=== PATIENT | male | born 1970 | race Caucasian/White ===

== ENCOUNTER 2019-10-08 10:28 | Outpatient (CLI) | payer BC, SELFPAY ==
--- NOTE | 2019-10-08 10:54 | ECG_ITS ---
Measurements Intervals [place] Rate: 80 P: 56 OK: 192 QRS: -55 QRSD: 97 T: 36 QT: 379 QTc: 438 Interpretive Statements SINUS RHYTHM WITH SINUS ARRHYTHMIA LEFT AXIS DEVIATION POSSIBLE LEFT ATRIAL ENLARGEMENT INCOMPLETE RIGHT BUNDLE BRANCH BLOCK BORDERLINE ECG Electronically Signed On 10-08-2019 12:15:26 [employer] INSURANCE SPECIALIST by Major Varela D.O.
== END 2019-10-08 10:29 | disposition home or self-care (01) ==
PROVIDERS: PCP Internal Medicine; Visit Provider Internal Medicine
DX: Z00.00 Encounter for general adult medical examination without abnormal findings (principal)
CPT/HCPCS: 93005

== ENCOUNTER 2022-03-24 00:46 | Day surgery (SDC) | payer BC, SELFPAY ==
[2022-03-13 14:55] VITALS: BMI 28.5
--- NOTE | 2022-03-13 15:29 | PC.NURSE ---
Pt instructed during telephone interview to disregard order for Mg Citrate with bowel prep due to recall. Pt states understanding.
[2022-03-24 08:52] VITALS: BMI 27.8
[2022-03-24 08:55] VITALS: BP 115/72; PULSE 95; RESP 18; TEMP 36.4; O2SAT 100
[2022-03-24] MEDS: LACTATED RINGERS 1,000 ML 150 ML IV CONT (09:03)
--- NOTE | 2022-03-24 09:03 | WPDANESEPPF ---
Anes - Initial Pre Proc Eval Procedure: Operation Date: 03/24/22 10:00 Proposed Procedures p Screening Colonoscopy - Mark Toibas MD Date/Time: 03/24/22 09:03 Surgeon: Mark Tobias MD Pre Op Diagnosis: neoplasm screening Patient Data Age: 51 Gender: M Height: 1.8 m Weight: 90.4 kg Last Vital Signs Temp 97.6 F 03/24/22 08:55 Pulse 95 03/24/22 08:55 Resp 18 03/24/22 08:55 BP 115/72 03/24/22 08:55 Pulse Ox 100 03/24/22 08:55 O2 Del Method Room Air 03/24/22 08:55 Allergies Allergy/AdvReac Type Severity Reaction Status Date / Time No Known Allergies Allergy Verified 03/13/22 14:52 Home Medications Medication Instructions Recorded Confirmed Type cholecalciferol (vitamin D3) 125 1 unit PO DAILY 10/06/19 03/13/22 History mcg (5,000 unit) disintegrating tablet fish oil-dha-epa 1,200 mg-144 1 cap PO DAILY 10/06/19 03/13/22 History mg-216 mg capsule loratadine 10 mg tablet (Claritin) 10 mg PO DAILY 10/06/19 03/13/22 History multivitamin 1 tablet PO DAILY 10/08/19 03/13/22 History tadalafil 5 mg tablet (Cialis) 5 mg PO DAILY PRN sexual activity 10/24/21 03/13/22 Rx #90 tabs Patient hx anesthesia problems: none Family hx anesthesia problems: none Results Review: All pre-operative results and documents have been reviewed as part of the pre-operative evaluation. [facility] Family History Family History Mother Diabetes mellitus Patient's mother is in good health Father Family history of throat cancer, Onset Age: 69 Patient's father is Sibling Family history of seizure disorder Social History Social History Smoking status: Never smoker Second hand tobacco smoke exposure: Yes Alcohol intake: never Substance use: never Living arrangements: with family Spiritual care concerns: No Anes - Eval Final PreProcedure Day of Procedure 03/24/22 09:03 Patient weight: normal Heart: regular rate and rhythm Lungs: clear to auscultation Airway: Mallampati scale class II Neurological: alert and oriented Last oral intake: >/= 8 hours ASA classification: II Emergent: no Anesthetic plan: proceed Anesthesia type and monitoring: general GIVS and standard monitoring Results Review: All pre-operative results and documents have been reviewed as part of the pre-operative evaluation. Informed Consent: The patient's anesthetic plan and its attendant risks and benefits were discussed with the patient/family/POA. Questions were solicited and answers provided to the satisfaction of the patient/family/POA.
--- NOTE | 2022-03-24 09:27 | PM.HPGS ---
History of Present Illness History of Present Illness Consent: Risks, benefits, and alternatives have been discussed and questions answered. Patient agrees to proceed with procedure. Chief complaint: neoplasm screening Narrative: Garett Diamond is a 51 year old male here for first screening colonoscopy Review of Systems Constitutional: Constitutional: Denies headache(s) and Denies weakness Eyes: Eyes: Denies blurry vision ENT: Reports Normal hearing present, Denies headache(s) and Denies neck pain Cardiovascular: Cardiovascular: Denies chest pain and Denies dyspnea Respiratory: Respiratory: Denies dyspnea Gastrointestinal: Gastrointestinal: Reports no additional gastrointestinal complaints Genitourinary: Genitourinary: Denies dysuria Musculoskeletal: Musculoskeletal: Denies neck pain Integumentary/Breasts: Skin/Breast: Denies dry skin Neurologic: Reports Normal hearing present, Denies headache(s) and Denies weakness Psychiatric: Psychiatric: Denies anxiety Endocrine: Endocrine: Denies change in body appearance Hematologic/Lymphatic: Hematologic/Lymphatic: Denies easy bleeding Allergic/Immunologic: Allergic/Immunologic: Denies urticaria PMFSH Family History Family History Mother Diabetes mellitus Patient's mother is in good health Father Family history of throat cancer, Onset Age: 69 Patient's father is Sibling Family history of seizure disorder Social History Social History Smoking status: Never smoker Second hand tobacco smoke exposure: Yes Alcohol intake: never Substance use: never Living arrangements: with family Spiritual care concerns: No Meds Home Medications and Allergies Home Medications Medication Instructions Recorded Confirmed Type cholecalciferol (vitamin D3) 125 1 unit PO DAILY 10/06/19 03/13/22 History mcg (5,000 unit) disintegrating tablet fish oil-dha-epa 1,200 mg-144 1 cap PO DAILY 10/06/19 03/13/22 History mg-216 mg capsule loratadine 10 mg tablet (Claritin) 10 mg PO DAILY 10/06/19 03/13/22 History multivitamin 1 tablet PO DAILY 10/08/19 03/13/22 History tadalafil 5 mg tablet (Cialis) 5 mg PO DAILY PRN sexual activity 10/24/21 03/13/22 Rx #90 tabs Allergies Allergy/AdvReac Type Severity Reaction Status Date / Time No Known Allergies Allergy Verified 03/13/22 14:52 Vital Signs Vital Signs - 24 hr 03/24/22 08:55 Temperature 97.6 F Pulse Rate 95 Respiratory Rate 18 Blood Pressure 115/72 Pulse Oximetry 100 Oxygen Delivery Room Air Exam Const: General: comfortable and no acute distress HENMT: General nose exam: Normal nares present Eyes: General: appearance normal, both eyes and all related structures Neck: Neck: no JVD Resp: Auscultation: clear to auscultation bilaterally Cardio: Rate: regular rate Rhythm: regular rhythm GI: Inspection: non-distended GI Palp: Yes Soft to palpation Skin: General skin exam: normal color Neuro: General: gait normal Speech: normal speech Extrem: General: normal to inspection Psych: Mental Status: mental status grossly normal Assessment and Plan Assessment and plan (1) Encounter for screening colonoscopy: Code(s): Z12.11 - Encounter for screening for malignant neoplasm of colon Status: Acute Assessment and Plan: colonoscopy
[2022-03-24 09:50] VITALS: BP 105/65; PULSE 84; RESP 15; O2SAT 96
[2022-03-24 10:00] VITALS: BP 112/74; PULSE 70; RESP 20; O2SAT 100
[2022-03-24 10:10] VITALS: BP 108/76; PULSE 90; RESP 15; O2SAT 100
== END 2022-03-24 10:25 | disposition home or self-care (01) ==
PROVIDERS: PCP Internal Medicine; Visit Provider Internal Medicine Gastroenterology
PROC: 0DJD8ZZ Inspection of Lower Intestinal Tract, Via Natural or Artificial Opening Endoscopic (ICD-10-PCS; CPT 45378; principal; 2022-03-24 10:00)
DX: Z12.11 Encounter for screening for malignant neoplasm of colon (principal); K57.30 Diverticulosis of large intestine without perforation or abscess without bleeding; K64.8 Other hemorrhoids
CPT/HCPCS: 45378; J2704; J7120

== ENCOUNTER 2024-02-28 15:06 | Outpatient (CLI) | payer BC, SELFPAY ==
[2024-02-28 15:43] LABS: Strep Group A RT-PCR NOT DETECTED (Negative)
== END 2024-02-28 15:07 | disposition home or self-care (01) ==
LOC: ANHLAB 15:08
PROVIDERS: PCP Family Medicine; Visit Provider Nurse Practitioner Family
DX: J02.9 Acute pharyngitis, unspecified (principal)
CPT/HCPCS: 87651

== ENCOUNTER 2025-02-17 19:26 | Emergency (ER) | payer BC, SELFPAY ==
--- NOTE | 2025-02-17 19:29 | ED_ITS ---
HPI - Male Genitourinary General Chief complaint: Urogenital-Male Stated complaint: Urinary Problems Time Seen by Provider: 02/17/25 19:32 Source: patient, RN notes reviewed and old records reviewed Mode of arrival: ambulatory Limitations: no limitations History of Present Illness HPI Narrative: 54-year-old male presents to the [facility] with concerns for a bladder infection. Presents with left lower quadrant pain. Patient reports that on Sunday he had a Pereira Ruddy which, multiple bowel movements throughout the day, developed left groin pain. Denies any nausea or vomiting. Denies fevers. Patient reports that his ?temperature felt off. ? Patient denies any actual elevated fevers. Has been taking Tylenol. No treatment today. Reports he has tried calling his primary care provider today was not able to get in until next week. Related Data Home Medications ?Medication ?Instructions ?Recorded ?Confirmed ?Last Taken ?Type cholecalciferol (vitamin D3) 125 1 unit PO DAILY 10/06/19 02/11/25 Unknown History mcg (5,000 unit) disintegrating tablet fish oil-dha-epa 1,200 mg-144 1 cap PO DAILY 10/06/19 02/11/25 Unknown History mg-216 mg capsule loratadine 10 mg tablet (Claritin) 10 mg PO DAILY 10/06/19 02/11/25 Unknown History multivitamin 1 tablet PO DAILY 10/08/19 02/11/25 Unknown History Allergies Allergy/AdvReac Type Severity Reaction Status Date / Time No Known Allergies Allergy Verified 02/17/25 19:27 Review of Systems Review of Systems: All systems reviewed & are unremarkable except as noted in HPI and below Constitutional: Constitutional: Reports no additional constitutional complaints Gastrointestinal: Gastrointestinal: Reports as per HPI, Reports abdominal pain, Reports change in bowel habits (Increased), Denies diarrhea and Denies nausea Genitourinary: Genitourinary: Reports no additional male genitourinary complaints Musculoskeletal: Musculoskeletal: Reports no additional musculoskeletal complaints Integumentary/Breasts: Skin/Breast: Reports system reviewed and no additional complaints, except as docu PMFSH Past Medical History Medical History Vitamin D deficiency Viral upper respiratory tract infection Skin lesion Post-traumatic osteoarthritis of left knee Other male erectile dysfunction Nasal septal deviation Male pattern baldness skilled nursing current use of therapeutic drug Keratosis Hypertriglyceridemia History of snoring Adult general medical exam Abnormal urine finding Unprotected sex High triglycerides IFG (impaired fasting glucose) GERD (gastroesophageal reflux disease) Encounter for screening colonoscopy Olecranon bursitis History of COVID-19 Vaccine counseling Family History Family History Mother Diabetes mellitus Patient's mother is in good health Father Family history of throat cancer, Onset Age: 69 Patient's father is Sibling Family history of seizure disorder Social History Social History Smoking status: Never smoker Second hand tobacco smoke exposure: Yes Alcohol intake: never Substance use: never Lack of Transportation: No Lack of Food: Never True Current Housing: I Have Housing Concerned About Future Housing: No Difficulty Paying Gas/Electric Bills: No Difficulty Paying for Meds: No Currently Unemployed: No Education: Trade/Vocational Certificate Difficulty w/ Childcare or Family Care: No Living arrangements: with family Spiritual care concerns: No Comments At the time of my signature, I reviewed and agree with the nursing past medical, surgical, social, and family history. There is no relevant family history pertinent to the patient complaint. Exam Const: General: cooperative, healthy appearing, comfortable, no acute distress, well developed, alert and well nourished Nutritional Appearance: well nourished Orientation/consciousness: patient oriented x3 Limitations: no limitations HENMT: Head: normal to inspection Eyes: General: appearance normal, both eyes and all related structures Alignment and Position: alignment normal Neck: Neck: normal visual inspection, full ROM, no lymphadenopathy and no meningeal signs Chest: Chest palpation & inspection: normal inspection of the chest Resp: Effort & Inspection: normal respiratory effort and able to speak in complete sentences Cardio: Rate: regular rate GI: GI Palp: Yes abdominal tenderness (Left lower quadrant), Yes Soft to palpation, No Firmness to palpation present (GI), Yes Tenderness to palpation present (GI), No Guarding due to palpation present (GI) and No Hernia present Skin: General skin exam: normal color and no rashes or lesions noted Neuro: General: patient oriented x3, gait normal, moves all extremities and no meningeal signs Cognition (Neuro): normal cognition Speech: normal speech Gait exam (Neuro): Normal gait present Extrem: General: normal to inspection, full ROM, capillary refill normal and normal gait Psych: Appearance: grossly normal and well kempt Mental Status: mental status grossly normal Speech and movement: Normal speech and movement present and Clear speech present Affect: normal affect Attitude: cooperative Course Course Level of Care: Express Care Visit Vital Signs Vital signs: Vital Signs Temperature 98.1 F 02/17/25 19:32 Pulse Rate 91 02/17/25 19:32 Respiratory Rate 20 02/17/25 19:32 Blood Pressure 132/76 02/17/25 19:32 Pulse Oximetry 98 02/17/25 19:32 Oxygen Delivery Room Air 02/17/25 19:32 Temperature 98.1 F 02/17/25 19:32 Pulse Rate 91 02/17/25 19:32 Respiratory Rate 20 02/17/25 19:32 Blood Pressure 132/76 02/17/25 19:32 Pulse Oximetry 98 02/17/25 19:32 Oxygen Delivery Room Air 02/17/25 19:32 Reviewed MDM - Male Genitourinary MDM Narrative Medical decision making narrative: Patient sitting in exam room. Patient is nontoxic, vitals stable. Patient presents stating he has concern for a UTI. Urine is clean, no leukocytes, no nitrites, no blood. On exam patient has left lower quadrant tenderness. Has had since Sunday, 4 days. Reports an increase in bowel movement but were not diarrhea. Through joint decision making discussed going to the ER. Patient states that going to the ER would cost 150 dollars, with rather follow-up with his primary care provider and call her in the morning to try to get an evaluation. Discussed with patient that if the symptoms get worse he develops fevers, nausea, vomiting it is advised that he does go to the emergency room which he verbalized understanding Discharge instructions reviewed with patient, as well as provided in writing per nursing staff. The instructions also include specific and strict return/GO TO THE ER as well as f/u information. All questions have been answered, and the patient deny any further questions with discharge and discharge plan. Some parts of this dictation were generated by voice recognition software and may contain typographical and/or grammatical inaccuracies. Differential Diagnosis Differential diagnosis: Likely urinary tract infection, urethritis, inguinal hernia and other (Diverticulitis, colitis, gastroenteritis) Lab Data Labs: Lab Results 02/17/25 Range/Units 19:35 POC Urine Color Yellow POC Urine Clarity Clear POC Urine pH 6.0 POC Ur Specif [place] 1.025 POC Urine Protein Negative (Negative) POC Ur Glucose (UA) Negative (Negative) POC Urine Ketones Negative (Negative) POC Urine Blood Negative (Negative) POC Urine Nitrite Negative (Negative) POC Urine Bilirubin Negative (Negative) POC Urine Urobilinogen 0.2 POC U Leukocyte Esteras Negative (Negative) Reviewed Critical Care Time Critical Care Time Critical Care Time: No Discharge Plan Discharge Clinical Impression: Abdominal pain, LLQ Patient Disposition: Home Condition: Stable Instructions: Abdominal Pain (ED) Additional Instructions: Urine did not show signs of infection. If the pain continues or get worse please go to the emergency room. Patient Language: Persian Prescriptions: No Action cholecalciferol (vitamin D3) 5,000 unit tablet,disintegrating 1 unit PO DAILY fish oil-dha-epa 1,200-144-216 mg capsule 1 cap PO DAILY loratadine [Claritin] 10 mg tablet 10 mg PO DAILY multivitamin Tablet 1 tablet PO DAILY fluticasone propionate 50 mcg/actuation spray,suspension 2 spray intranasal DAILY Qty: 16 0RF Rx Instructions: administer into each nostril tadalafil [Cialis] 5 mg tablet 5 mg PO DAILY PRN (Reason: sexual activity) Qty: 90 1RF Follow-up/Referrals: My Harrell APRN [Primary Care Provider] - 3 Days ([facility] follow-up) Stand Alone Forms: Work/School Release IP Time of Disposition: 19:43
[2025-02-17 19:32] VITALS: BP 132/76; PULSE 91; RESP 20; TEMP 36.7; O2SAT 98
[2025-02-17 19:41] LABS: EDUAAPPEAR Clear; EDUABILI Negative (Negative); EDUABLOOD Negative (Negative); EDUACOLOR1 Yellow; EDUAGLUCOSE Negative (Negative); EDUAKETONE Negative (Negative); EDUALEUKO Negative (Negative); EDUANITRATE Negative (Negative); EDUAPH 6.0; EDUAPROTEIN Negative (Negative); EDUASPGRAVITY 1.025; EDUAUROBILI 0.2
== END 2025-02-17 19:45 | disposition home or self-care (01) ==
PROVIDERS: Emergency Provider Nurse Practitioner; PCP Nurse Practitioner Family
DX: R10.32 Left lower quadrant pain (principal); E55.9 Vitamin D deficiency, unspecified; K21.9 Gastro-esophageal reflux disease without esophagitis; R73.01 Impaired fasting glucose
CPT/HCPCS: 81003; 99212; G0463

== ENCOUNTER 2025-04-15 15:45 | Outpatient (CLI) | payer BC, SELFPAY ==
--- NOTE | ~2025-04-15 | CT_ITS ---
Garett Dodd [place] EXAMINATION: CT abdomen pelvis w con COMPARISON: None HISTORY: R10.32 - Left lower quadrant pain TECHNIQUE: Axial images were obtained through the abdomen, pelvis post administration of IV contrast. Oral contrast was also administered. Coronal reconstruction images were obtained from the axial views. CT scan performed using dose optimization techniques including the following automated exposure control; adjustment of mA and/or kV; use of iterative reconstruction technique. Automatic exposure control was used to reduce radiation dose. Permanent radiation dose record is archived to PACS. FINDINGS: CT abdomen: LUNG BASES: The lung bases demonstrate chronic changes. LIVER: Mild hepatic steatosis. Portal vein patent. No intrahepatic biliary duct dilatation. SPLEEN: Unremarkable. KIDNEYS: Right Kidney: Unremarkable. No calculi. No hydronephrosis. Left Kidney: Unremarkable. No calculi. No hydronephrosis ADRENAL GLANDS: Unremarkable. PANCREAS: Unremarkable. GALLBLADDER/BILIARY: Unremarkable. No biliary dilatation. STOMACH AND ESOPHAGUS: Visualized stomach and esophagus within normal limits. BOWEL/MESENTERY: Moderate fecal content, no colitis or diverticulitis. Moderate diverticulosis. Appendix normal. Mesentery normal. No dilated small bowel loops. ADENOPATHY/RETROPERITONEUM: No lymphadenopathy. AORTA/VASCULATURE: Normal caliber aorta. FREE FLUID OR FREE AIR: No free fluid.. CT pelvis: SOLID ORGANS/REPRODUCTIVE: The prostate is enlarged with a cystic focus in the right prostate gland measuring 1.5 x 1.6 cm incompletely evaluated, correlate with PSA and prostate ultrasound. BLADDER: Within normal limits. OSSEOUS STRUCTURES: Sequelae of previous trauma noted in the left iliac bone. No sclerotic or lytic lesions. OVERLYING SOFT TISSUES: Unremarkable. IMPRESSION: 1. No etiology to explain the patient's pain. Incidental findings above Reviewed, dictated and finalized at location A.
--- OUTSIDE RECORDS SUMMARY | 2025-04-15 15:58 | XMS_ITS | Clinical Summary ---
Author Organization [facility] Address [address] [place] [address] Care Team Providers Care Child Care Supervisor Name Role Phone Michael Calvin MD Primary Care Provider [phone] Allergies Active Allergy Reactions Criticality Noted Date Comments Naproxen Stomach upset Low 02/09/2021 Medications tadalafiL (CIALIS) 5 mg tablet TAKE 1 TABLET BY MOUTH ONCE DAILY NEEDED FOR SEXUAL ACTIVITY. 03/10/2021 Active Active Problems No known active problems Surgical History Surgery Date Site/Laterality Comments KNEE ARTHROSCOPY Left MMD by Dr. 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 Gender Identity Not on file Sexual Orientation Not on file Occupation Industry Job Start Date Job End Date [employer] Not on file Not on file Not on file Obstetrics History Last Filed Vital Signs Vital Sign Reading Time Taken Comments Blood Pressure 124/77 03/07/2013 6:14 AM CDT Pulse 72 03/07/2013 6:14 AM CDT Temperature 36.2 C (97.1 F) 03/07/2013 6:14 AM CDT Respiratory Rate - - Oxygen Saturation 97% 03/07/2013 6:14 AM CDT Inhaled Oxygen Concentration - - Weight 90.7 kg (200 lb) 04/27/2021 7:27 AM CDT Height 180.3 cm (5' 11) 04/27/2021 7:27 AM CDT Body Mass Index 27.89 04/27/2021 7:27 AM CDT Plan of Treatment Not on file Insurance [employer] Care Teams Child Care Supervisor Relationship Specialty Start Date End Date Michael Calvin MD PCP - General Internal Medicine 02/04/21
--- OUTSIDE RECORDS SUMMARY | 2025-04-15 15:58 | XMS_ITS | Clinical Summary ---
Author Organization [email or web address] Address [address] [place] [address] Care Team Providers Care Manager Talent Acquisition Name Role Phone Unavailable Primary Care Provider Unavailabl e Source Comments [email or web address],non-owned Affiliates and Associated Physician Practices is amultiple site organization consisting of ambulatory clinics and hospital sitesin [place], [place], [place] and [place]. This disclosure is being madepursuant to the Care Everywhere program and may not contain all information available regarding this patient. 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 Gender Identity Not on file Sexual Orientation Not on file Plan of Treatment Health Maintenance Due Date Last Done Comments COLOGUARD (AGES 45-75) - COL ON CA SCREENING 1971 COLON MONITORING 1971 COLONOSCOPY - COLON CA SCREENING 1971 CT COLONOGRAPHY - COLON CA SCREENING 1971 Colorectal Cancer Screening 1971 FIT - COLON CA SCREENING 1971 FLEX SIG - COLON CA SCREENING 1971 LIPID TESTING 1971 HIV SCREENING 1986 HEPATITIS C SCREENING 04/21/1989 DTAP/TDAP/TD VACCINES (1 - Tdap) 1990 HEPATITIS B VACCINE (1 of 3 - 19+ 3-dose series) 1990 PNEUMOCOCCAL VACCINE 50+ (1 of 1 - PCV) 2021 ZOSTER VACCINE (1 of 2) 2021 DEPRESSION SCREENING 08/06/2024 COVID-19 VACCINE (1 - 2023-2 5 season) 2025 INFLUENZA VACCINE (#1) 2025 HIB VACCINE Aged Out No longer eligi ble based on patient's age to complete this topic HPV VACCINE Aged Out No longer eligi ble based on patient's age to complete this topic MENINGOCOCCAL (Group B) VACC INE SHARED DECISION-MAKING Aged Out No longer eligibl e based on patient's age to complete this topic MENINGOCOCCAL GROUPS A/C/Y/W VACCINE Aged Out No longer eligible b ased on patient's age to complete this topic
== END 2025-04-15 15:46 | disposition home or self-care (01) ==
LOC: ANHIMG 15:48
PROVIDERS: PCP Nurse Practitioner Family; Visit Provider Nurse Practitioner Family
DX: R10.32 Left lower quadrant pain (principal); K57.90 Diverticulosis of intestine, part unspecified, without perforation or abscess without bleeding; R19.5 Other fecal abnormalities
CPT/HCPCS: 74177; Q9967